=== PATIENT | male | born 1970 | race Caucasian/White ===

== ENCOUNTER 2019-10-04 10:03 | Emergency (ER) | payer OTHER ==
[~2019-10-04] VITALS: Ht 188 cm; Wt 125.6 kg
[2019-10-04 10:07] VITALS: BP 154/97; Ht 188 cm; Wt 125.6 kg
== END 2019-10-04 11:04 | disposition home or self-care (01) ==
LOC: ED 10:03
DX: L03.114 Cellulitis of left upper limb (principal); R03.0 Elevated blood-pressure reading, without diagnosis of hypertension; F17.210 Nicotine dependence, cigarettes, uncomplicated; Z71.6 Tobacco abuse counseling; Z98.890 Other specified postprocedural states
CPT/HCPCS: 90715; 99406